=== PATIENT | female | born 1955 | race Caucasian/White ===

== ENCOUNTER 2019-06-13 13:17 | Inpatient (IN) | payer BC ==
[~2019-06-13] VITALS: Ht 162.6 cm; Wt 118.6 kg
[2019-06-13 13:48] LABS: BASOPHILS % (AUTO) 0.2 % (0.0-5.0); HEMATOCRIT 36.4 % (36-48); LYMPHOCYTES % (AUTO) 2.5 % (21.0-51.0); MEAN CORPUSCULAR HEMOGLOBIN 31.9 pg (27.0-33.0); MEAN CORPUSCULAR HGB CONC 34.2 g/dL (32.0-36.0); MEAN CORPUSCULAR VOLUME 93.3 fL (79-99); MONOCYTES % (AUTO) 5.1 % (3.0-13.0); NEUTROPHILS % (AUTO) 92.2 % (40.0-77.0); PLATELET COUNT (AUTO) 196 K/uL (130-400); RED CELL DISTRIBUTION WIDTH 12.8 % (11.0-15.5); WHITE BLOOD COUNT (AUTO) 28.5 K/uL (4.8-10.8)
[2019-06-13 14:16] LABS: CREATININE 1.1 mg/dL (0.5-1.5); POTASSIUM 3.3 mmol/L (3.5-5.1)
[2019-06-13 14:20] LABS: INR 1.15 (0.85-1.15); PARTIAL THROMBOPLASTIN TIME 30.7 SEC (26.3-35.5)
[2019-06-13] MEDS ORDERED: ZOSYN 3.375GM+NS 50ML 50 ML IV ONE (14:25)
[2019-06-13] MEDS ORDERED: ONDANSETRON HCL 4 MG/2 ML VIAL ONE (14:25)
[2019-06-13] MEDS ORDERED: SODIUM CHLORIDE 0.9% 1000ML 3,000 ML IV ONE (14:26)
[2019-06-13 14:28] LABS: ALBUMIN 3.2 g/dL (3.5-5.0); BILIRUBIN,DIRECT 0.2 mg/dL (0.0-0.3); BILIRUBIN,TOTAL 1.4 mg/dL (0.2-1.0); TOTAL PROTEIN, SERUM 7.6 g/dL (6.0-8.3)
[2019-06-13] MEDS ORDERED: IOHEXOL 350 MG/ML 100ML INFUS..BTL IV ONE (14:38)
[2019-06-13] MEDS ORDERED: IBUPROFEN 600 MG TABLET ONE (15:39)
[2019-06-13 15:42] LABS: APPEARANCE,URINE Clear (CLEAR); BILIRUBIN,URINE Negative (NEGATIVE); COLOR,URINE Yellow (YELLOW); GLUCOSE, URINE (UA) Negative (NEGATIVE); KETONES,URINE Negative (NEGATIVE); LEUKOCYTE ESTERASE ,URINE Trace (NEGATIVE); NITRATE,URINE Negative (NEGATIVE); OCCULT BLOOD,URINE Trace (NEGATIVE); PH,URINE 5.5 (5.0-8.0); PROTEIN,URINE Trace mg/dL (NEGATIVE); UROBILINOGEN,URINE 0.2 mg/dL (0.2-1.0)
[2019-06-13] MEDS ORDERED: VANCOMYCIN PROTOCOL PER PHARMACY IV SCH (15:45)
[2019-06-13] MEDS ORDERED: VANCOMYCIN 1GM+NS 250ML 250 ML IV SCH (15:45)
[2019-06-13] MEDS: SODIUM CHLORIDE 0.9% 1000ML 1,000 ML IV SCH ×2 (15:46→22:26)
[2019-06-13] MEDS ORDERED: VANCOMYCIN 1.5 GM in SODIUM CHLORIDE 0.9% 250 ML IV SCH (16:00)
[2019-06-13] MEDS ORDERED: DiphenhydrAMINE HCL 50 MG/ML VIAL IV PRN (16:00)
[2019-06-13] MEDS ORDERED: LACTULOSE 20 GM/30 ML UDCUP PO PRN (16:00)
[2019-06-13] MEDS ORDERED: DIPHENHYDRAMINE HCL 25 MG CAPSULE PO PRN (16:00)
[2019-06-13] MEDS ORDERED: NITROGLYCERIN 0.4 MG SL TAB SL PRN (16:00)
[2019-06-13] MEDS ORDERED: ONDANSETRON HCL 4 MG/2 ML VIAL IV PRN (16:00)
[2019-06-13] MEDS ORDERED: ACETAMINOPHEN 325 MG TAB PO PRN (16:00)
[2019-06-13] MEDS ORDERED: MAG HYDROX/AL HYDROX/SIMETH ES 30 ML SUSP UDCUP PO PRN (16:00)
[2019-06-13] MEDS ORDERED: MORPHINE SULFATE 2 MG/ML 1ML SYG IM PRN (16:00)
[2019-06-13] MEDS ORDERED: COMPOUND IV REFRIGERATED 1 EACH IVSOLN MISC PRN (16:00)
[2019-06-13 16:48] LABS: BACTERIA,URINE Few /HPF (None Seen); RBC,URINE 0-1 /HPF (0-1); SQUAMOUS EPITHELIAL CELL,UR Few /HPF (0-2)
[2019-06-13] MEDS ORDERED: SODIUM CHLORIDE 0.9% 1000ML 1,000 ML IV ONE (19:19)
[2019-06-13] MEDS: ZOSYN 3.375GM+NS 50ML 50 ML IV SCH (21:00)
[2019-06-13] MEDS: FAMOTIDINE/PF 20 MG/2 ML VIAL IV SCH (21:00)
[2019-06-13 21:30] VITALS: BP 123/65
[2019-06-13] MEDS ORDERED: POTASSIUM CHLORIDE 20MEQ/100ML 100 ML IV ONE (23:03)
[2019-06-13] MEDS: ACETAMINOPHEN 325 MG TAB PO PRN (23:06)
[2019-06-13] MEDS ORDERED: LISI1TAB29 PO (23:36)
[2019-06-13] MEDS ORDERED: SIMV40TA59 PO (23:36)
[2019-06-13] MEDS ORDERED: METF-526 PO (23:36)
[2019-06-13] MEDS ORDERED: PROP80TA4 PO (23:36)
[2019-06-13] MEDS ORDERED: IBUP-2784 PO (23:36)
[2019-06-13] MEDS ORDERED: SERT50TA12 PO (23:36)
[2019-06-13] MEDS ORDERED: FLUT16H NASAL (23:36)
[2019-06-13] MEDS ORDERED: CHOL200013 PO (23:36)
[2019-06-13] MEDS ORDERED: FLEC100T3 PO (23:36)
[2019-06-13] MEDS ORDERED: APIX5TAB PO (23:36)
[2019-06-13] MEDS ORDERED: FURO20TA6 PO (23:36)
[2019-06-13] MEDS ORDERED: ACET-66 PO (23:36)
[2019-06-13] MEDS ORDERED: MELA1TAB17 PO (23:36)
[2019-06-13 23:40] VITALS: BP 92/52
[2019-06-14] VITALS (24 sets, daily range): BP systolic 85–119; BP diastolic 45–98
[2019-06-14] MEDS ORDERED: IPRATROPIUM/ALBUTEROL SULFATE 3 ML SOLUTION IH STA (01:12)
[2019-06-14] MEDS ORDERED: FUROSEMIDE 10 MG/ML 2ML VIAL IV STA (01:17)
[2019-06-14] MEDS ORDERED: IPRATROPIUM/ALBUTEROL SULFATE 3 ML SOLUTION IH ONE (01:20)
[2019-06-14] MEDS ORDERED: FUROSEMIDE 10 MG/ML 2ML VIAL ONE (01:21)
[2019-06-14] MEDS ORDERED: HOME MEDICATION 1 EACH PO PRN (01:30)
[2019-06-14] MEDS: ZOSYN 3.375GM+NS 50ML 50 ML IV SCH ×3 (04:21→20:43)
[2019-06-14] MEDS ORDERED: PHARMACY COMMUNICATION MISC SCH ×2 (04:30→05:45)
[2019-06-14] MEDS ORDERED: VANCOMYCIN 750MG + NS 250 ML IV SCH ×2 (06:00)
[2019-06-14 06:08] LABS: BASOPHILS % (AUTO) 0.2 % (0.0-5.0); EOSINOPHILS % (AUTO) 0.1 % (0.0-8.0); HEMATOCRIT 34.1 % (36-48); MEAN CORPUSCULAR HEMOGLOBIN 31.9 pg (27.0-33.0); MEAN CORPUSCULAR HGB CONC 33.3 g/dL (32.0-36.0); MEAN CORPUSCULAR VOLUME 95.8 fL (79-99); MONOCYTES % (AUTO) 3.3 % (3.0-13.0); NEUTROPHILS % (AUTO) 93.4 % (40.0-77.0); PLATELET COUNT (AUTO) 186 K/uL (130-400); RED BLOOD CELL COUNT(AUTO) 3.56 MIL/uL (4.00-5.50); RED CELL DISTRIBUTION WIDTH 12.8 % (11.0-15.5); WHITE BLOOD COUNT (AUTO) 25.9 K/uL (4.8-10.8)
[2019-06-14 06:18] LABS: ALBUMIN 2.7 g/dL (3.5-5.0); BILIRUBIN,TOTAL 0.8 mg/dL (0.2-1.0); CREATININE 1.2 mg/dL (0.5-1.5); POTASSIUM 3.4 mmol/L (3.5-5.1); TOTAL PROTEIN, SERUM 6.9 g/dL (6.0-8.3)
[2019-06-14] MEDS: FAMOTIDINE/PF 20 MG/2 ML VIAL IV SCH ×2 (08:27→20:43)
[2019-06-14] MEDS: PROPRANOLOL HCL 10 MG TAB PO SCH ×2 (08:28→20:45)
[2019-06-14] MEDS: PROPRANOLOL HCL 20 MG TAB PO SCH ×2 (08:28→20:45)
[2019-06-14] MEDS: FLECAINIDE ACETATE 100 MG TABLET PO SCH ×2 (08:29→20:45)
[2019-06-14] MEDS: SERTRALINE HCL 50 MG TABLET PO SCH (08:29)
[2019-06-14] MEDS: FUROSEMIDE 20 MG TABLET PO SCH (08:29)
[2019-06-14] MEDS: ACETAMINOPHEN 325 MG TAB PO PRN ×3 (08:30→20:44)
[2019-06-14] MEDS: LISINOPRIL HCTZ PO SCH (08:34)
--- NOTE | 2019-06-14 08:38 | NUR ---
HOLD [employer] HOLDING [employer] DUE TO PENDING PROCEDURE.
[2019-06-14] MEDS ORDERED: APIXABAN 5 MG TABLET PO SCH (09:00)
[2019-06-14] MEDS ORDERED: CHOLECALCIFEROL 2000 UNIT PO SCH (09:00)
[2019-06-14] MEDS ORDERED: ENOXAPARIN SODIUM 30 MG/0.3 ML SQ SCH (09:00)
[2019-06-14] MEDS: LIDOCAINE HCL-MPF 1% 2ML VIAL IV PRN (11:29)
[2019-06-14] MEDS: POTASSIUM CHLORIDE 20MEQ/100ML 100 ML IV PRN (11:30)
[2019-06-14] MEDS ORDERED: MIDAZOLAM HCL 1 MG/ML 2ML VIAL ONE (14:37)
[2019-06-14] MEDS ORDERED: PROPOFOL 10 MG/ML 20ML VIAL IV ONE (14:37)
[2019-06-14] MEDS ORDERED: SUCCINYLCHOLINE 200MG/10ML SYR ONE (14:37)
[2019-06-14] MEDS ORDERED: LIDOCAINE HCL MPF 1% 5ML VIAL ONE (14:37)
[2019-06-14] MEDS ORDERED: FENTANYL CITRATE PF 50 MCG/1 ML 2ML VIAL ONE (14:38)
[2019-06-14] MEDS ORDERED: LIDOCAINE PF 2% 5ML ABBOJECT ONE (14:39)
[2019-06-14] MEDS ORDERED: ROCURONIUM 10MG/1ML SYR 10 MG/ML ML ONE (14:45)
[2019-06-14] MEDS ORDERED: ONDANSETRON HCL 4 MG/2 ML VIAL ONE (15:07)
[2019-06-14] MEDS ORDERED: PHENYLEPHRINE HCL 10 MG/ML 1ML VIAL IV ONE (15:28)
[2019-06-14] MEDS ORDERED: KETOROLAC TROMETHAMINE 30MG/ML ONE (15:33)
[2019-06-14] MEDS: SODIUM CHLORIDE 0.9% 1000ML 1,000 ML IV SCH (15:50)
--- NOTE | 2019-06-14 17:38 | NUR ---
D/C PLAN cm spoke to pt regarding d/c planning. Pt lives with spouse. [facility] spouse can assist in care as needed. Pt is [place] from [place]. States they have not established a physician in the area. CM spoke to pt about wound care. [facility] spouse is willing to obtain teaching. 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 Verbalized understanding. States she is agreeable to home health or placement at a facility if ordered. Plan for now is home with home health vs short term snf/rehab. CM to f/u. Addendum: 06/14/19 at 1740 by FRANCISCA ODONNELL CM Amended: Links added.
[2019-06-14] MEDS ORDERED: VANCOMYCIN 1.5 GM in SODIUM CHLORIDE 0.9% 250 ML IV ONE (18:00)
[2019-06-14] MEDS: IPRATROPIUM/ALBUTEROL SULFATE 3 ML SOLUTION IH PRN (18:17)
[2019-06-14] MEDS: SIMVASTATIN 20 MG TABLET PO SCH (20:44)
[2019-06-15] VITALS (7 sets, daily range): BP systolic 95–129; BP diastolic 37–74
--- NOTE | 2019-06-15 03:23 | NUR ---
SLEPT Pt slept well.Uses her own cpap machine from home.
[2019-06-15] MEDS: VANCOMYCIN 500MG+NS 100ML 100 ML IV SCH ×2 (04:18→17:25)
[2019-06-15] MEDS: ACETAMINOPHEN 325 MG TAB PO PRN ×3 (04:18→21:16)
[2019-06-15 05:06] LABS: BASOPHILS % (AUTO) 0.6 % (0.0-5.0); EOSINOPHILS % (AUTO) 0.6 % (0.0-8.0); LYMPHOCYTES % (AUTO) 5.7 % (21.0-51.0); MEAN CORPUSCULAR HEMOGLOBIN 32.1 pg (27.0-33.0); MEAN CORPUSCULAR HGB CONC 34.1 g/dL (32.0-36.0); MEAN CORPUSCULAR VOLUME 94.2 fL (79-99); MONOCYTES % (AUTO) 5.3 % (3.0-13.0); NEUTROPHILS % (AUTO) 87.8 % (40.0-77.0); PLATELET COUNT (AUTO) 188 K/uL (130-400); RED BLOOD CELL COUNT(AUTO) 3.28 MIL/uL (4.00-5.50); RED CELL DISTRIBUTION WIDTH 13.2 % (11.0-15.5)
[2019-06-15 05:28] LABS: ALBUMIN 2.2 g/dL (3.5-5.0); BILIRUBIN,TOTAL 0.4 mg/dL (0.2-1.0); CREATININE 0.7 mg/dL (0.5-1.5); POTASSIUM 3.4 mmol/L (3.5-5.1); TOTAL PROTEIN, SERUM 6.3 g/dL (6.0-8.3)
[2019-06-15] MEDS: ZOSYN 3.375GM+NS 50ML 50 ML IV SCH ×3 (05:38→21:07)
[2019-06-15] MEDS ORDERED: POTASSIUM CHLORIDE 10% ELIXIR 20 MEQ/15 ML UDCUP PO PRN (06:15)
[2019-06-15] MEDS ORDERED: POTASSIUM CHLORIDE 10% ELIXIR 20 MEQ/15 ML UDCUP ONE (06:19)
[2019-06-15] MEDS: PROPRANOLOL HCL 20 MG TAB PO SCH ×2 (08:42→21:00)
[2019-06-15] MEDS: FAMOTIDINE/PF 20 MG/2 ML VIAL IV SCH ×2 (08:42→21:08)
[2019-06-15] MEDS: PROPRANOLOL HCL 10 MG TAB PO SCH ×2 (08:44→21:00)
[2019-06-15] MEDS: FUROSEMIDE 20 MG TABLET PO SCH (08:45)
[2019-06-15] MEDS: FLECAINIDE ACETATE 100 MG TABLET PO SCH ×2 (08:45→21:08)
[2019-06-15] MEDS: SERTRALINE HCL 50 MG TABLET PO SCH (08:45)
[2019-06-15] MEDS: LISINOPRIL HCTZ PO SCH (08:46)
[2019-06-15] MEDS: POTASSIUM CHLORIDE 20 MEQ ERTAB PO PRN (08:54)
[2019-06-15] MEDS ORDERED: MORPHINE SULFATE 2 MG/ML 1ML SYG ONE (17:22)
[2019-06-15] MEDS: MORPHINE SULFATE 2 MG/ML 1ML SYG IV PRN ×2 (17:24→23:26)
[2019-06-15] MEDS: SIMVASTATIN 20 MG TABLET PO SCH (21:08)
[2019-06-16 04:15] LABS: BASOPHILS % (AUTO) 0.2 % (0.0-5.0); EOSINOPHILS % (AUTO) 0.8 % (0.0-8.0); HEMATOCRIT 29.2 % (36-48); LYMPHOCYTES % (AUTO) 9.1 % (21.0-51.0); MEAN CORPUSCULAR HGB CONC 33.9 g/dL (32.0-36.0); MEAN CORPUSCULAR VOLUME 94.4 fL (79-99); MONOCYTES % (AUTO) 5.9 % (3.0-13.0); NUCLEATED RED BLOOD CELLS 0.1 % (0.0-0.19); PLATELET COUNT (AUTO) 209 K/uL (130-400); RED BLOOD CELL COUNT(AUTO) 3.09 MIL/uL (4.00-5.50); WHITE BLOOD COUNT (AUTO) 12.8 K/uL (4.8-10.8)
[2019-06-16 04:17] VITALS: BP 126/61
[2019-06-16] MEDS: ZOSYN 3.375GM+NS 50ML 50 ML IV SCH ×3 (04:21→20:11)
[2019-06-16 04:26] LABS: HEMOGLOBIN A1C 6.2 % (4.0-6.0)
[2019-06-16 04:27] LABS: ALBUMIN 1.9 g/dL (3.5-5.0); BILIRUBIN,TOTAL 0.4 mg/dL (0.2-1.0); CREATININE 0.6 mg/dL (0.5-1.5); CRP QUANTITATIVE 565.2 mg/L (0.00-9.0); PHOSPHORUS 2.2 mg/dL (2.5-4.9); POTASSIUM 3.4 mmol/L (3.5-5.1)
[2019-06-16 05:15] LABS: ERYTHROCYTE SEDIMENTATION RATE 101 MM/HR (0-30)
[2019-06-16] MEDS: VANCOMYCIN 500MG+NS 100ML 100 ML IV SCH ×2 (05:25→17:16)
[2019-06-16] MEDS: POTASSIUM CHLORIDE 20 MEQ ERTAB PO PRN ×2 (05:25→18:30)
[2019-06-16] MEDS ORDERED: COMPOUND IV REFRIGERATED 1 EACH IVSOLN MISC PRN (06:45)
[2019-06-16 08:00] VITALS: BP 125/75
[2019-06-16] MEDS: PROPRANOLOL HCL 10 MG TAB PO SCH ×2 (08:38→21:31)
[2019-06-16] MEDS: PROPRANOLOL HCL 20 MG TAB PO SCH ×2 (08:38→21:32)
[2019-06-16] MEDS: SERTRALINE HCL 50 MG TABLET PO SCH (08:38)
[2019-06-16] MEDS: FLECAINIDE ACETATE 100 MG TABLET PO SCH ×2 (08:38→20:11)
[2019-06-16] MEDS: FAMOTIDINE/PF 20 MG/2 ML VIAL IV SCH ×2 (08:38→20:11)
[2019-06-16] MEDS: LISINOPRIL HCTZ PO SCH (08:39)
[2019-06-16] MEDS: MORPHINE SULFATE 2 MG/ML 1ML SYG IV PRN ×3 (08:39→17:17)
[2019-06-16] MEDS: FUROSEMIDE 20 MG TABLET PO SCH (08:39)
--- NOTE | 2019-06-16 11:16 | NUR ---
CM Note: [facility] pending ins auth and acceptance CM met with pt discussed MD recommendations for LTAC pt will need abx, woundcare, and rehab. Pt agreeable [facility]I signed for [facility]. Faxed order and clinicals, confirmation received. Spoke to Rose will come eval pt. Pt pending ins auth and acceptance. MOT semi-filled, pending to be completed once approved, flagged in chart. EMS arranged and faxed for today, primary nurse to call [facility] once pt ready to DC. Primary nurse aware. CM to cont to follow up.
[2019-06-16 11:19] VITALS: BP 139/68
[2019-06-16] MEDS ORDERED: VANCOMYCIN 2 GM in SODIUM CHLORIDE 0.9% 500ML 500 ML IV SCH (12:00)
[2019-06-16] MEDS ORDERED: MORPHINE SULFATE 2 MG/ML 1ML SYG IVP SCH (15:00)
--- NOTE | 2019-06-16 15:15 | NUR ---
C consult Patient is scheduled to have surgical debridement and wound vac placement on 06/17/19. No [facility] recommendations required at this time.
[2019-06-16 16:00] VITALS: BP 140/68
[2019-06-16] MEDS: NEUTRA-PHOS PACKET 1 EACH PO SCH ×2 (17:16→21:35)
[2019-06-16] MEDS: ACETAMINOPHEN 325 MG TAB PO PRN (18:30)
[2019-06-16] MEDS: IPRATROPIUM/ALBUTEROL SULFATE 3 ML SOLUTION IH PRN (19:10)
[2019-06-16] MEDS: SIMVASTATIN 20 MG TABLET PO SCH (20:11)
[2019-06-16 20:50] VITALS: BP 150/77
--- NOTE | 2019-06-16 22:00 | NUR ---
VOIDS Pt voiding post uriostegui cath removed.
[2019-06-17] VITALS (22 sets, daily range): BP systolic 131–198; BP diastolic 62–102
[2019-06-17] MEDS: MORPHINE SULFATE 2 MG/ML 1ML SYG IV PRN ×4 (01:34→21:47)
[2019-06-17] MEDS: ACETAMINOPHEN 325 MG TAB PO PRN (04:22)
[2019-06-17] MEDS: ZOSYN 3.375GM+NS 50ML 50 ML IV SCH ×3 (05:02→21:00)
[2019-06-17 05:18] LABS: BASOPHILS % (AUTO) 0.4 % (0.0-5.0); EOSINOPHILS % (AUTO) 0.9 % (0.0-8.0); HEMATOCRIT 31.1 % (36-48); LYMPHOCYTES % (AUTO) 11.6 % (21.0-51.0); MEAN CORPUSCULAR HEMOGLOBIN 32.2 pg (27.0-33.0); MEAN CORPUSCULAR HGB CONC 34.3 g/dL (32.0-36.0); MEAN CORPUSCULAR VOLUME 93.7 fL (79-99); MONOCYTES % (AUTO) 10.3 % (3.0-13.0); NEUTROPHILS % (AUTO) 76.8 % (40.0-77.0); PLATELET COUNT (AUTO) 263 K/uL (130-400); RED BLOOD CELL COUNT(AUTO) 3.32 MIL/uL (4.00-5.50); RED CELL DISTRIBUTION WIDTH 13.1 % (11.0-15.5); WHITE BLOOD COUNT (AUTO) 11.2 K/uL (4.8-10.8)
[2019-06-17 05:46] LABS: CREATININE 0.7 mg/dL (0.5-1.5); PHOSPHORUS 3.3 mg/dL (2.5-4.9); POTASSIUM 3.3 mmol/L (3.5-5.1)
[2019-06-17] MEDS: LIDOCAINE HCL-MPF 1% 2ML VIAL IV PRN (06:14)
[2019-06-17] MEDS: VANCOMYCIN 500MG+NS 100ML 100 ML IV SCH (06:14)
[2019-06-17] MEDS: POTASSIUM CHLORIDE 20MEQ/100ML 100 ML IV PRN (06:15)
--- NOTE | 2019-06-17 08:15 | NUR ---
[facility] trough level faxed to pharmacy,spoke to [place].
[2019-06-17] MEDS: FAMOTIDINE/PF 20 MG/2 ML VIAL IV SCH ×2 (08:42→21:47)
[2019-06-17] MEDS: FLECAINIDE ACETATE 100 MG TABLET PO SCH ×2 (08:50→21:46)
[2019-06-17] MEDS: FUROSEMIDE 20 MG TABLET PO SCH (09:00)
[2019-06-17] MEDS: SERTRALINE HCL 50 MG TABLET PO SCH (09:00)
[2019-06-17] MEDS: NEUTRA-PHOS PACKET 1 EACH PO SCH ×2 (09:00→13:00)
--- NOTE | 2019-06-17 10:09 | NUR ---
CM Note: [facility] pending ins auth Spoke to Rose Jeff, received updated clinicals, made aware pt pending debridement vulva w/possible woundvac application today. Pt pending ins auth at this time. Primary nurse aware. CM to cont to follow up.
[2019-06-17] MEDS: PROPRANOLOL HCL 10 MG TAB PO SCH ×2 (10:10→21:46)
[2019-06-17] MEDS: PROPRANOLOL HCL 20 MG TAB PO SCH ×2 (10:11→21:46)
[2019-06-17] MEDS ORDERED: SODIUM CHLORIDE 0.9% 1000ML 1,000 ML IV ONE (11:33)
--- NOTE | 2019-06-17 13:17 | NUR ---
patient has perimeters of redness from fascitis marked and the redness to skin is less than perimeters at this time but around vaginal area she is still very red and swollen Addendum: 06/17/19 at 1324 by EDISON GERONIMO RN RN Amended: Links added.
[2019-06-17] MEDS ORDERED: DEXAMETHASONE SOD PHOSPHATE 10MG/ML 1ML VIAL ONE (13:25)
[2019-06-17] MEDS ORDERED: SUCCINYLCHOLINE 200MG/10ML SYR ONE ×2 (13:25→13:27)
[2019-06-17] MEDS ORDERED: LIDOCAINE PF 2% 5ML ABBOJECT ONE ×2 (13:25→13:27)
[2019-06-17] MEDS ORDERED: FENTANYL CITRATE PF 50 MCG/1 ML 2ML VIAL ONE (13:26)
[2019-06-17] MEDS ORDERED: ROCURONIUM 10MG/1ML SYR 10 MG/ML ML ONE (13:26)
[2019-06-17] MEDS ORDERED: ONDANSETRON HCL 4 MG/2 ML VIAL ONE (13:26)
[2019-06-17] MEDS ORDERED: GLYCOPYRROLATE 1 MG/5 ML SYRINGE ONE ×2 (13:26→14:40)
[2019-06-17] MEDS ORDERED: MIDAZOLAM HCL 1 MG/ML 2ML VIAL ONE (13:26)
[2019-06-17] MEDS ORDERED: PROPOFOL 10 MG/ML 20ML VIAL IV ONE (13:26)
[2019-06-17] MEDS ORDERED: NEOSTIGMINE 5MG/5ML SYR IV ONE ×2 (13:26→14:39)
[2019-06-17] MEDS ORDERED: NEOMY SULF/POLYMYXIN B SULFATE 1 ML AMPUL IR ONE (13:49)
[2019-06-17] MEDS ORDERED: NALOXONE HCL 0.4 MG/1 ML ML ONE (14:55)
[2019-06-17] MEDS ORDERED: SUGAMMADEX SODIUM 200 MG/2 ML VIAL IV ONE (14:56)
--- NOTE | 2019-06-17 16:00 | NUR ---
received pt post op; frequent vs in progress current vs 141/69, 70, 100 % on o2 2l nc; pt aaox3, moving all extremeties, wound vac inplace to vulva and running at 120 mg cont suction; pt c/o mild burning pain to vaginal pain; pt has dranken a little bit of water; uriostegui cathetor in place and strapped to leg; bag off floor hanging on side of bed
[2019-06-17] MEDS: VANCOMYCIN 1GM+NS 250ML 250 ML IV SCH (16:32)
[2019-06-17] MEDS: SIMVASTATIN 20 MG TABLET PO SCH (21:46)
[2019-06-18] VITALS: BP 125/73
[2019-06-18 04:00] VITALS: BP 130/67
[2019-06-18] MEDS: ZOSYN 3.375GM+NS 50ML 50 ML IV SCH ×3 (05:14→20:47)
[2019-06-18] MEDS: VANCOMYCIN 1GM+NS 250ML 250 ML IV SCH ×2 (05:14→16:43)
[2019-06-18] MEDS: MORPHINE SULFATE 2 MG/ML 1ML SYG IV PRN ×6 (05:15→22:30)
[2019-06-18 06:15] LABS: BASOPHILS % (AUTO) 0.3 % (0.0-5.0); EOSINOPHILS % (AUTO) 0.6 % (0.0-8.0); LYMPHOCYTES % (AUTO) 13.7 % (21.0-51.0); MEAN CORPUSCULAR HEMOGLOBIN 31.5 pg (27.0-33.0); MEAN CORPUSCULAR HGB CONC 33.3 g/dL (32.0-36.0); MEAN CORPUSCULAR VOLUME 94.7 fL (79-99); MONOCYTES % (AUTO) 12.5 % (3.0-13.0); NEUTROPHILS % (AUTO) 72.9 % (40.0-77.0); PLATELET COUNT (AUTO) 265 K/uL (130-400); RED BLOOD CELL COUNT(AUTO) 3.17 MIL/uL (4.00-5.50); WHITE BLOOD COUNT (AUTO) 12.5 K/uL (4.8-10.8)
[2019-06-18 06:27] LABS: CREATININE 0.7 mg/dL (0.5-1.5); POTASSIUM 3.5 mmol/L (3.5-5.1)
[2019-06-18 06:43] LABS: CRP QUANTITATIVE 141.8 mg/L (0.00-9.0)
[2019-06-18 07:00] VITALS: BP 149/71
[2019-06-18 07:54] LABS: ERYTHROCYTE SEDIMENTATION RATE 104 MM/HR (0-30)
[2019-06-18] MEDS: PROPRANOLOL HCL 10 MG TAB PO SCH ×2 (08:59→20:48)
[2019-06-18] MEDS: FUROSEMIDE 20 MG TABLET PO SCH (08:59)
[2019-06-18] MEDS: FAMOTIDINE/PF 20 MG/2 ML VIAL IV SCH ×2 (09:00→20:48)
[2019-06-18] MEDS: SERTRALINE HCL 50 MG TABLET PO SCH (09:00)
[2019-06-18] MEDS: PROPRANOLOL HCL 20 MG TAB PO SCH ×2 (09:00→20:48)
[2019-06-18] MEDS: POTASSIUM CHLORIDE 20 MEQ ERTAB PO PRN ×3 (09:05→17:00)
[2019-06-18] MEDS: FLECAINIDE ACETATE 100 MG TABLET PO SCH ×2 (09:05→20:48)
[2019-06-18 11:00] VITALS: BP 144/68
[2019-06-18] MEDS: IPRATROPIUM/ALBUTEROL SULFATE 3 ML SOLUTION IH PRN ×2 (12:55→18:44)
--- NOTE | 2019-06-18 13:47 | NUR ---
CM Note: wound measurements per [facility] CM spoke to Aisha Red RN [facility] director. As per Aisha wound measurements 17cm X 2cm X 10cm, sinus track @ 1 o'clock 5cm. Primary nurse made aware. CM to cont to follow up.
[2019-06-18 15:06] LABS: INR 1.01 (0.85-1.15); PROTHROMBIN TIME 10.6 SEC (9.6-11.6)
--- NOTE | 2019-06-18 15:59 | NUR ---
2:45 - Patient was on procedure, PICC line placement. Unable to perform initial Physical Therapy Evaluation. Will attempt to evaluate patient tomorrow AM. Addendum: 06/18/19 at 1601 by ALEXANDRA FLORES, PT PT Amended: Links added.
[2019-06-18 16:00] VITALS: BP 159/74
--- NOTE | 2019-06-18 16:17 | NUR ---
RD SCREEN - LOS X 5 Pt admitted for Necrotizing fascitis. S/p surgical abscess drainage and debridement. Recommend Shaw BID, Vitamin C and ZnSO4 daily, for wound healing support. Pt tolerating 75gm CCD with no report of GI distress and Pt reports improved PO intake (75% observation at lunch time). Recommend to continue diet order. Pt LBM 06/16/19. Pt monitoed labs: Ca 8.3, Crp 141.80, Alb 1.9. RD to continue to monitor. Please notify RD as additional nutrition concerns arise. Thank you. Addendum: 06/18/19 at [address] RD Amended: Links added.
[2019-06-18] MEDS: METRONIDAZOLE 500 MG TABLET PO SCH ×2 (16:42→19:54)
[2019-06-18] MEDS: DOCUSATE SODIUM 100 MG CAP PO SCH (16:42)
[2019-06-18 20:00] VITALS: BP 155/84
[2019-06-18] MEDS: SIMVASTATIN 20 MG TABLET PO SCH (20:48)
[2019-06-19] VITALS: BP 137/85
[2019-06-19] MEDS: METRONIDAZOLE 500 MG TABLET PO SCH ×2 (03:43→15:45)
[2019-06-19] MEDS: MORPHINE SULFATE 2 MG/ML 1ML SYG IV PRN ×4 (03:44→15:49)
[2019-06-19 04:00] VITALS: BP 130/79
[2019-06-19 04:13] LABS: CRP QUANTITATIVE 108.2 mg/L (0.00-9.0)
[2019-06-19 04:18] LABS: HEMATOCRIT 30.3 % (36-48); MEAN CORPUSCULAR HEMOGLOBIN 32.3 pg (27.0-33.0); MEAN CORPUSCULAR HGB CONC 34.3 g/dL (32.0-36.0); MEAN CORPUSCULAR VOLUME 94.1 fL (79-99); PLATELET COUNT (AUTO) 290 K/uL (130-400); RED BLOOD CELL COUNT(AUTO) 3.22 MIL/uL (4.00-5.50); RED CELL DISTRIBUTION WIDTH 12.9 % (11.0-15.5); WHITE BLOOD COUNT (AUTO) 12.3 K/uL (4.8-10.8)
[2019-06-19 04:29] LABS: ALBUMIN 1.9 g/dL (3.5-5.0); CREATININE 0.7 mg/dL (0.5-1.5); MAGNESIUM 1.6 mg/dL (1.80-2.40); PHOSPHORUS 3.3 mg/dL (2.5-4.9); POTASSIUM 3.6 mmol/L (3.5-5.1)
[2019-06-19] MEDS: ZOSYN 3.375GM+NS 50ML 50 ML IV SCH ×2 (04:36→13:04)
[2019-06-19 05:19] LABS: ERYTHROCYTE SEDIMENTATION RATE 88 MM/HR (0-30)
[2019-06-19] MEDS: IPRATROPIUM/ALBUTEROL SULFATE 3 ML SOLUTION IH PRN ×3 (06:38→18:30)
[2019-06-19] MEDS: BUDESONIDE 0.5 MG/2 ML INH IH SCH ×2 (06:52→18:45)
[2019-06-19] MEDS ORDERED: VANCOMYCIN 1.25 GM in SODIUM CHLORIDE 0.9% 250 ML IV SCH (07:00)
[2019-06-19 08:00] VITALS: BP 174/91
[2019-06-19] MEDS ORDERED: APIXABAN 5 MG TABLET PO SCH (09:00)
[2019-06-19] MEDS: PROPRANOLOL HCL 20 MG TAB PO SCH (09:08)
[2019-06-19] MEDS: FLECAINIDE ACETATE 100 MG TABLET PO SCH (09:09)
[2019-06-19] MEDS: PROPRANOLOL HCL 10 MG TAB PO SCH (09:10)
[2019-06-19] MEDS: FUROSEMIDE 20 MG TABLET PO SCH (09:10)
[2019-06-19] MEDS: SERTRALINE HCL 50 MG TABLET PO SCH (09:12)
[2019-06-19] MEDS: DOCUSATE SODIUM 100 MG CAP PO SCH (09:12)
[2019-06-19] MEDS: FAMOTIDINE/PF 20 MG/2 ML VIAL IV SCH (09:12)
[2019-06-19] MEDS ORDERED: ENOXAPARIN SODIUM 120 MG/0.8ML SQ SCH (11:00)
[2019-06-19 11:49] VITALS: BP 160/85
--- NOTE | 2019-06-19 13:29 | NUR ---
CM Note: [facility] pending ins auth Spoke to Rose Jeff, updated clinicals received and already forwarded to insurance this morning. Pt still pending ins auth at this time. CM to cont to follow up.
[2019-06-19 16:49] VITALS: BP 147/74
[2019-06-19] MEDS ORDERED: MAGNESIUM 2GM PREMIX 50ML 50 ML IV PRN (17:15)
[2019-06-19] MEDS: POTASSIUM CHLORIDE 20 MEQ ERTAB PO PRN (17:58)
--- NOTE | 2019-06-19 18:11 | NUR ---
REPORT GIVEN TO VELASQUEZ DUDLEY RN PATIENT READY TO BE TRANSFER.
--- NOTE | 2019-06-19 20:00 | NUR ---
DISCHARGE Day shift nurse has discharge patient and pending EMS to transfer patient to [facility]. Patient is resting in bed, with family member at bedside. AA&OX3. No shortness of breath or distress. Patient states no pain at this time. Will be sent with a 16 polish uriostegui catheter and a PICC line to the right upper arm. Bed at its lowest and locked position. Call light within reach. Encourage patient to call for assistance. Will continue to monitor patient.
[2019-06-19 21:09] VITALS: BP 165/85
--- NOTE | 2019-06-19 21:44 | NUR ---
[facility] CALL PLACED TO EMS--STATES SHE IS "NEXT ON THE LIST" FOR TRANSPORT. THE ORIGINAL REQUEST FOR TRANSPORT WAS AT 1835, ACCORDING TO THE EMS DISPATCH.
--- NOTE | 2019-06-19 21:44 | NUR ---
[facility] CALL PLACED TO EMS--STATES THAT SHE IS "NEXT ON THE LIST" TO BE TRANSPORTED. THE INITIAL CALL TO [facility] WAS AT 1835
--- NOTE | 2019-06-19 22:40 | NUR ---
DISCHARGE Patient sitting in bed, AA&O X3. Patient is not in distress or shortness of breath. EMS arrived to floor to transfer patient to [facility]. Packet given to EMS. Patient is taking her c-pap and her belongings. EMS transferred patient via stretcher.
== END 2019-06-19 22:40 | DRG 853 ==
LOC: EDH 13:17 → EDHIP 15:46 → 3CH 20:52
PROVIDERS: ADMIT Family Medicine; ATTEND Family Medicine
PROC: 5A09357 Assistance with Respiratory Ventilation, Less than 24 Consecutive Hours, Continuous Positive Airway Pressure (ICD-10-PCS; 2019-06-13)
PROC: 02HV33Z Insertion of Infusion Device into Superior Vena Cava, Percutaneous Approach (ICD-10-PCS; 2019-06-14)
PROC: 5A09357 Assistance with Respiratory Ventilation, Less than 24 Consecutive Hours, Continuous Positive Airway Pressure (ICD-10-PCS; 2019-06-14)
PROC: 0JDB0ZZ Extraction of Perineum Subcutaneous Tissue and Fascia, Open Approach (ICD-10-PCS; principal; 2019-06-14 11:45)
PROC: 0JDB0ZZ Extraction of Perineum Subcutaneous Tissue and Fascia, Open Approach (ICD-10-PCS; 2019-06-17)
PROC: 5A09357 Assistance with Respiratory Ventilation, Less than 24 Consecutive Hours, Continuous Positive Airway Pressure (ICD-10-PCS; 2019-06-17)
PROC: 0U9M0ZZ Drainage of Vulva, Open Approach (ICD-10-PCS; 2019-06-17)
PROC: 5A09357 Assistance with Respiratory Ventilation, Less than 24 Consecutive Hours, Continuous Positive Airway Pressure (ICD-10-PCS; 2019-06-19)
DX: A41.50 Gram-negative sepsis, unspecified (principal); M72.6 Necrotizing fasciitis; L02.215 Cutaneous abscess of perineum; N76.4 Abscess of vulva; D68.59 Other primary thrombophilia; Z68.41 Body mass index [BMI] 40.0-44.9, adult; N76.2 Acute vulvitis; R65.20 Severe sepsis without septic shock; K57.30 Diverticulosis of large intestine without perforation or abscess without bleeding; D64.9 Anemia, unspecified; E11.9 Type 2 diabetes mellitus without complications; E66.01 Morbid (severe) obesity due to excess calories; E78.5 Hyperlipidemia, unspecified; G47.33 Obstructive sleep apnea (adult) (pediatric); I10 Essential (primary) hypertension; I48.91 Unspecified atrial fibrillation; J44.9 Chronic obstructive pulmonary disease, unspecified; K76.0 Fatty (change of) liver, not elsewhere classified; Z79.01 Long term (current) use of anticoagulants; Z83.3 Family history of diabetes mellitus; Z96.649 Presence of unspecified artificial hip joint; Z90.49 Acquired absence of other specified parts of digestive tract
CPT/HCPCS: 36415; 71045; 74176; 74177; 80048; 80053; 80076; 80202; 81001; 82040; 82948; 83036; 83605; 83735; 84100; 84145; 85025; 85027; 85610; 85651; 85730; 86140; 86850; 86900; 86901; 87040; 87070; 87076; 87205; 88305; 93005; 94640; 94664; 97039; 99291; A4344; A4606; A6266; C1894; G0378; J0330; J1100; J1650; J1885; J1940; J2001; J2250; J2310; J2370; J2405; J2543; J2704; J2710; J3010; J3370; J3475; J3480; J3490; J7030; J7040; Q9967